=== PATIENT | male | born 1980 | race Asian ===

== ENCOUNTER → 2017-03-07 | Outpatient (CLI) | payer OTHER ==
[~2017-03-07] VITALS: Ht 157.5 cm; Wt 64.0 kg
== END | disposition home or self-care (01) ==
LOC: Rad HDHVI 07:50
PROVIDERS: ATTEND Internal Medicine Cardiovascular Disease
DX: R07.89 Other chest pain (principal); R94.31 Abnormal electrocardiogram [ECG] [EKG]
CPT/HCPCS: 93017; 93306